=== PATIENT | female | born 1975 | race Hispanic/Latino ===

== ENCOUNTER 2019-11-26 06:00 | Day surgery (SDC) | payer OTHER ==
[2019-11-19 12:00] LABS: BASOPHILS % (AUTO) 0.5 % (0.0-5.0); EOSINOPHILS % (AUTO) 1.5 % (0.0-8.0); HEMATOCRIT 37.8 % (36-48); LYMPHOCYTES % (AUTO) 30.1 % (21.0-51.0); MEAN CORPUSCULAR HEMOGLOBIN 24.7 pg (27.0-33.0); MEAN CORPUSCULAR HGB CONC 31.7 g/dL (32.0-36.0); MEAN CORPUSCULAR VOLUME 77.9 fL (79-99); MONOCYTES % (AUTO) 5.3 % (3.0-13.0); NEUTROPHILS % (AUTO) 62.4 % (40.0-77.0); PLATELET COUNT (AUTO) 229 K/uL (130-400); RED BLOOD CELL COUNT(AUTO) 4.85 MIL/uL (4.00-5.50); RED CELL DISTRIBUTION WIDTH 14.1 % (11.0-15.5); WHITE BLOOD COUNT (AUTO) 5.5 K/uL (4.8-10.8)
[2019-11-19 12:14] LABS: CREATININE 0.7 mg/dL (0.5-1.5); POTASSIUM 3.9 mmol/L (3.5-5.1)
[2019-11-25 12:10] VITALS: BP 143/80
[~2019-11-26] VITALS: Ht 162.6 cm; Wt 93.4 kg
[2019-11-26] VITALS (17 sets, daily range): BP systolic 115–141; BP diastolic 63–79
[~2019-11-26 06:00] MED LIST: CEFAZOLIN SODIUM 1 GM VIAL IVP SCH; FLUO20CA35 PO
[2019-11-26] MEDS ORDERED: LACTATED RINGERS 1000ML 1,000 ML IV ONE (06:30)
[2019-11-26] MEDS ORDERED: SUCCINYLCHOLINE CHLORIDE 20 MG/ML 10 ML VIAL ONE (07:51)
[2019-11-26] MEDS ORDERED: LIDOCAINE PF 2% 5ML ABBOJECT ONE (07:51)
[2019-11-26] MEDS ORDERED: PROPOFOL 10 MG/ML 20ML VIAL IV ONE (07:52)
[2019-11-26] MEDS ORDERED: FENTANYL CITRATE PF 50 MCG/1 ML 2ML VIAL ONE (07:52)
[2019-11-26] MEDS ORDERED: MIDAZOLAM HCL 1 MG/ML 2ML VIAL ONE (07:52)
[2019-11-26] MEDS ORDERED: ROCURONIUM 10MG/1ML SYR 10 MG/ML ML ONE (07:52)
[2019-11-26] MEDS ORDERED: ONDANSETRON HCL 4 MG/2 ML VIAL ONE (07:56)
[2019-11-26] MEDS ORDERED: EPHEDRINE SULFATE 50 MG/ML AMPULE ONE (08:25)
[2019-11-26] MEDS ORDERED: MEPERIDINE-PF 25 MG/ML SYG ONE (08:55)
[2019-11-26] MEDS ORDERED: DEXAMETHASONE SOD PHOSPHATE 10MG/ML 1ML VIAL ONE (09:11)
[2019-11-26] MEDS ORDERED: CEPH500B PO (09:24)
[2019-11-26] MEDS ORDERED: MELO-108 PO (09:24)
[2019-11-26] MEDS ORDERED: ACET1TAB25 PO (09:24)
--- NOTE | 2019-11-26 10:25 | NUR ---
POST OP RECEIVED PT AND REPORT FROM KENIA MORA RN FROM PACU. PT IN NO DISTRESS. S/P RT KNEE SCOPE. DRESSING CLEAN AND DRY. ICE PACK APPLIED AND LEG ELEVATED. TOES WARM TO TOUCH. PT ORIENTED TO ROOM AND CALL LIGHT. WILL CONTINUE TO MONITOR
--- NOTE | 2019-11-26 11:00 | NUR ---
NAUSEA PT HAS SMALL EMESIS OF FROTHY WHITE PHLEGMS AND A SMALL AMT OF CLEAR LIQUID. PT REPORTED FEELING BETTER AFTER VOMITING. WILL CONTINUE TO MONITOR PT. PT REPORTED SHE IS HUNGRY SO SHE GETS NAUSEATED.
--- NOTE | 2019-11-26 11:25 | NUR ---
DISCHARGE PT AND SISTER GIVEN DISCHARGE INSTRUCTIONS. BOTH VOICED UNDERSTANDING. PT TAKEN OUT VIA W/C WITH CRUTCHES. DRESSING TO RT KNEE INTACT AND CLEAN AND DRY.
== END 2019-11-26 11:25 | disposition home or self-care (01) ==
LOC: DAH 06:00
PROVIDERS: ATTEND Orthopaedic Surgery
DX: M23.321 Other meniscus derangements, posterior horn of medial meniscus, right knee (principal); M25.561 Pain in right knee; G89.29 Other chronic pain; G47.33 Obstructive sleep apnea (adult) (pediatric); E78.00 Pure hypercholesterolemia, unspecified; F32.9 Major depressive disorder, single episode, unspecified; Z20.828 Contact with and (suspected) exposure to other viral communicable diseases; Z79.899 Other long term (current) drug therapy
CPT/HCPCS: 29881; 36415; 80048; 84703; 85025; A4215; A4221; A4222; A4223; A4606; A4649 ×2; A4663; A4930; A6223; C9803; J0330; J0690; J1100; J2001; J2175; J2250; J2405; J2704; J3010; J3490; J7120 ×2; U0003

== ENCOUNTER → 2024-01-04 | Outpatient (CLI) | payer OTHER ==
[~2024-01-04] MED LIST changes: +ACET-2079 PO; -CEFAZOLIN SODIUM 1 GM VIAL IVP SCH; +CEPH500B PO; +FLUO-418 PO; -FLUO20CA35 PO; +MELO-108 PO
== END | disposition home or self-care (01) ==
LOC: RAH 08:45
PROVIDERS: ATTEND Orthopaedic Surgery
DX: S83.242A Other tear of medial meniscus, current injury, left knee, initial encounter (principal); M23.92 Unspecified internal derangement of left knee; X58.XXXA Exposure to other specified factors, initial encounter; Y93.89 Activity, other specified; Y92.89 Other specified places as the place of occurrence of the external cause; Y99.8 Other external cause status
CPT/HCPCS: 73721